=== PATIENT | male | born 1960 | race African-American/Black ===

== ENCOUNTER 2024-03-19 16:38 | Outpatient (CLI) | payer OTHER, SELFPAY ==
[2024-03-19 17:11] LABS: Alanine Aminotransferase 66 U/L (6-50); Aspartate Amino Transferase 45 U/L (17-59)
== END 2024-03-19 16:39 | disposition home or self-care (01) ==
LOC: ANHLAB 16:46
PROVIDERS: Visit Provider Podiatrist Foot & Ankle Surgery
DX: B35.1 Tinea unguium (principal)
CPT/HCPCS: 36415; 84450; 84460